=== PATIENT | male | born 2000 ===

== ENCOUNTER 2019-11-24 18:06 | Emergency (ER) | payer OTHER ==
--- NOTE | 2019-11-24 18:49 | EDM.PDOC ---
ED HPI GENERAL MEDICAL PROBLEM - General Chief Complaint: Laceration Stated Complaint: INJURY TO CHIN Time Seen by Provider: 11/24/19 18:49 Source of Information: Reports: Patient History Limitations: Reports: No Limitations - History of Present Illness INITIAL COMMENTS - FREE TEXT/NARRATIVE: HISTORY AND PHYSICAL: History of present illness: Patient is a 19-year-old male presents to the ED with complaint of chin laceration. He states he was standing on a landing "a few feet" off the ground when he fell forward off the ladder and hitting his chin on the ground. He denies LOC, vomiting, dizziness, head injury, chest pain, shortness of breath, difficulty breathing or swallowing. He reports pain in his jaw and his neck. He denies significant past medical or surgical history. Review of systems: As per history of present illness and below otherwise all systems reviewed and negative. Past medical history: As per history of present illness and as reviewed below otherwise noncontributory. Surgical history: As per history of present illness and as reviewed below otherwise noncontributory. Social history: No reported history of drug or alcohol abuse. Family history: As per history of present illness and as reviewed below otherwise noncontributory. Physical exam: General: Patient sitting comfortably in no acute distress and nontoxic appearing HEENT: 3cm x 0.5cm laceration to the angle of the mandible. Pain to palpation of TM joints bilaterally. Patient has minimal restriction with opening of the mouth and is able to clench down normally without any asymmetry. No bony crepitus or deformities notes. normocephalic, pupils reactive, negative for conjunctival pallor or scleral icterus, mucous membranes moist, throat clear, neck supple, nontender, trachea midline. No meningeal signs. Lungs: Clear to auscultation, breath sounds equal bilaterally, chest nontender. Heart: S1S2, regular, negative for clicks, rubs, or overt murmur. Abdomen: Soft, nondistended, nontender. Negative for masses or hepatosplenomegaly. Negative for costovertebral tenderness. No rigidity, rebound , guarding. Pelvis: Stable nontender. Genitourinary: Deferred. Rectal: Deferred. Spine: No midline tenderness to palpation or step offs. PAin to palpation of bilateral cervical paraspinals. Extremities: Atraumatic, negative for cords or calf pain. Neurovascular unremarkable. Neuro: Awake, alert, oriented. Cranial nerves II through XII unremarkable. Cerebellum unremarkable. Motor and sensory unremarkable throughout. Exam nonfocal. Notes: Diagnostics: x-ray mandible, x-ray c spine Therapeutics: LAceration repair -see procedure note Prescriptions: none Impression: Chin laceration, fall, jaw pain Plan: Keep the area clean and dry as instructed. Follow-up for suture removal in 7 to 10 days. Alternate tylenol and motrin as needed for pain Follow up with primary care provider Return to ED as needed as discussed Definitive disposition and diagnosis as appropriate pending reevaluation and review of above. jaw Pain Score (Numeric/FACES): 3 - Related Data Allergies Allergy/AdvReac Type Severity Reaction Status Date / Time No Known Allergies Allergy Verified 11/24/19 18:28 Home Meds: Home Meds . [No Known Home Meds] 11/24/19 [History] Social & Family History - Family History Family Medical History: Noncontributory - Tobacco Use Smoking Status *Q: Light Tobacco Smoker Years of Tobacco use: 1 Packs/Tins Daily: 0.3 - Recreational Drug Use Recreational Drug Use: No ED ROS GENERAL - Review of Systems Review Of Systems: Comprehensive ROS is negative, except as noted in HPI. ED EXAM, SKIN/RASH Exam: See Below (see dictation) Course - Vital Signs Last Recorded V/S: Last Vital Signs Temp 97.4 F 11/24/19 18:38 Pulse 86 11/24/19 18:38 Resp 18 11/24/19 18:38 BP 132/77 11/24/19 18:38 Pulse Ox 97 11/24/19 18:38 - Orders/Labs/Meds Meds: Medications Discontinued Medications Generic Name Dose Route Start Last Admin Trade Name Maciej PRN Reason Stop Dose Admin Lidocaine/Epinephrine 10 ml 11/24/19 19:10 Xylocaine 1% With Epinephrine 1:100,000 INJECT 11/24/19 19:11 ONETIME ONE Lidocaine/Epinephrine Confirm 11/24/19 19:21 11/24/19 20:33 Xylocaine 1% With Epinephrine 1:100,000 Administered 11/24/19 19:22 20 ml Dose Administration 20 ml .ROUTE .STK-MED ONE Departure - Departure Time of Disposition: 20:18 Disposition: Home, Self-Care 01 Condition: Good Clinical Impression: Chin laceration, Fall, Jaw pain - Discharge Information Instructions: Head Injury, Adult, Facial Laceration, [id number] Referrals: PCP,None [Primary Care Provider] - Forms: ED Department Discharge Additional Instructions: The following information is given to patients seen in the emergency department who are being discharged to home. This information is to outline your options for follow-up care. We provide all patients seen in our emergency department with a follow-up referral. The need for follow-up, as well as the timing and circumstances, are variable depending upon the specifics of your emergency department visit. If you don't have a primary care physician on staff, we will provide you with a referral. We always advise you to contact your personal physician following an emergency department visit to inform them of the circumstance of the visit and for follow-up with them and/or the need for any referrals to a consulting specialist. The emergency department will also refer you to a specialist when appropriate. This referral assures that you have the opportunity for follow-up care with a specialist. All of these measure are taken in an effort to provide you with optimal care, which includes your follow-up. Under all circumstances we always encourage you to contact your private physician who remains a resource for coordinating your care. When calling for follow-up care, please make the office aware that this follow-up is from your recent emergency room visit. If for any reason you are refused follow-up, please contact the [facility] Emergency Department at and asked to speak to the emergency department charge nurse. [facility] [address] [place] [id number] [id number] Keep the area clean and dry as instructed. Follow-up for suture removal in 7 to 10 days. Alternate tylenol and motrin as needed for pain Follow up with primary care provider Return to ED as needed as discussed Sepsis Event Note - Evaluation Sepsis Screening Result: No Definite Risk - Focused Exam Vital Signs: Vital Signs Temp Pulse Resp BP Pulse Ox 03/12/20 18:38 97.4 F 86 18 132/77 97 11/24/19 18:29 98.3 F 79 15 132/77 96 Date Exam was Performed: 11/24/19 Time Exam was Performed: 20:39
[2019-11-24] MEDS ORDERED: Lidocaine 1% with EPINEPHrine 1:100,000 10 ML MDV INJECT ONE (19:10)
[2019-11-24] MEDS ORDERED: Lidocaine 1% with EPINEPHrine 1:100,000 20 ML MDV ONE (19:21)
--- NOTE | 2019-11-24 19:43 | CR ---
Cervical spine: AP, lateral and odontoid views of the cervical spine were obtained. Comparison: No prior cervical spine imaging. Vertebral body heights and disc spaces are maintained. Prevertebral soft tissues are normal. No subluxation or fracture is identified is seen on this 3 view study. Impression: 1. No abnormality is appreciated on 3 view cervical spine study. Diagnostic code #1 This report was dictated in MDT
--- NOTE | 2019-11-24 19:49 | CR ---
Mandible: 5 views of the mandible were obtained. No discrete abnormality is seen. If patient has sufficient symptoms to indicate further imaging, CT study could then be considered. Impression: 1. Findings as noted above. Diagnostic code #1 This report was dictated in MDT
== END 2019-11-24 20:35 | disposition home or self-care (01) ==
LOC: MW.ED 18:06
DX: S01.81XA Laceration without foreign body of other part of head, initial encounter (principal); F17.210 Nicotine dependence, cigarettes, uncomplicated; W11.XXXA Fall on and from ladder, initial encounter
CPT/HCPCS: 12013; 70110; 70110-26; 72040; 72040-26; 99283; 99283-25

== ENCOUNTER 2019-12-06 13:44 | Emergency (ER) | payer SELFPAY | END 2019-12-06 14:07 | disposition home or self-care (01) | LOC: MW.ED 13:44 | DX: Z53.21 Procedure and treatment not carried out due to patient leaving prior to being seen by health care provider (principal) ==